=== PATIENT | male | born 1960 | race Caucasian/White ===

== ENCOUNTER 2016-04-26 11:11 | Observation (INO) | payer OTHER ==
[~2016-04-26] VITALS: Ht 175.3 cm; Wt 60.0 kg
[~2016-04-26 11:11] MED LIST: ACETAMINOPHEN-1 EAC1 PO; KEFLEX500 MG PO; MELOXICAM7.5 MG PO
[2016-04-26 12:01] LABS: MCH 35.3 PG (29.0-34.0); MCHC 35.1 G/DL (30.0-36.0); MCV 100.4 FL (86-99); MEAN PLAT.VOLUME 9.7 uM^3 (9.0-12.4); PLATELET COUNT 223 K/uL (156-360); RBC DIS.WIDTH-SD 43.2 % (39-53); RED BLOOD COUNT 4.48 M/uL (4.00-5.50); WHITE BLOOD COUNT 7.2 K/uL (4.1-10.2)
[2016-04-26 12:13] LABS: CHLORIDE 95 mEq/L (99-109); POTASSIUM 3.6 mEq/L (3.7-5.4); SODIUM 137 mEq/L (136-147)
[2016-04-26 12:15] LABS: GLUCOSE 105 mg/dL (70-99)
[2016-04-26 12:16] LABS: ANION GAP 18 MEQ/L (2-14)
[2016-04-26 12:17] LABS: TOTAL BILIRUBIN 1.6 mg/dL (0.0-1.0)
[2016-04-26 12:19] LABS: ALKALINE PHOSPHATASE 105 IU/L (3-129); GFR ESTIMATE (CALCULATED) > 59 mL/min/
[2016-04-26 12:20] LABS: UREA NITROGEN (BUN) 9 mg/dL (9-23)
[2016-04-26 12:22] LABS: LIPASE 12 U/L (1.0-51.0); TROP-I INTERPRETATION NEGATIVE; TROPONIN-I < 0.01 ng/mL (0.0-0.30)
[2016-04-26] MEDS ORDERED: TYLENOL WITH C1 EACH PO (16:11)
[2016-04-26] MEDS ORDERED: MELOXICAM7.5 MG PO (16:12)
[2016-04-26] MEDS ORDERED: PERCOCET 5/31 TABLET PO (16:12)
[2016-04-26 18:31] VITALS: BP 130/79
[2016-04-26 19:49] VITALS: BP 140/92
[2016-04-26 20:47] LABS: TROP-I INTERPRETATION NEGATIVE; TROPONIN-I < 0.01 ng/mL (0.0-0.30)
[2016-04-27 00:20] LABS: ADD MIUA? YES; BILIRUBIN SMALL; BLOOD NEGATIVE; COLOR ORANGE ((YELLOW)); GLUCOSE (STRIP) NEGATIVE; KETONES >=80; LEUKOCYTES SMALL; NITRITE NEGATIVE; PROTEIN (STRIP) 100; SPECIFIC GRAVITY 1.027 (1.000-1.030)
[2016-04-27 00:41] LABS: TROP-I INTERPRETATION NEGATIVE; TROPONIN-I < 0.01 ng/mL (0.0-0.30)
[2016-04-27 01:00] LABS: BACTERIA RARE /HPF; CASTS NONE SEEN /LPF; CRYSTALS NONE SEEN; EPITHELIAL CELLS RARE /HPF; MUCUS NONE SEEN /LPF; RED BLOOD CELLS RARE /HPF (0-5); UCUL ADDED? NO; WHITE BLOOD CELLS 0-5 /HPF (0-5)
[2016-04-27 02:03] VITALS: BP 125/83
[2016-04-27 04:41] VITALS: BP 126/88
[2016-04-27 07:01] LABS: INTER. NORMALIZED RATIO 1.1; PROTHROMBIN TIME 11.4 (9.2-11.2); PTT 28.1 (25-32)
[2016-04-27 08:17] LABS: HEMATOCRIT 40.4 % (38.0-50.0); MCHC 33.9 G/DL (30.0-36.0); MCV 103.3 FL (86-99); MEAN PLAT.VOLUME 10.6 uM^3 (9.0-12.4); PLATELET COUNT 196 K/uL (156-360); RBC DIS.WIDTH-CV 12.6 % (11.8-14.6); RBC DIS.WIDTH-SD 47.4 % (39-53); RED BLOOD COUNT 3.91 M/uL (4.00-5.50); WHITE BLOOD COUNT 6.7 K/uL (4.1-10.2)
[2016-04-27 08:30] LABS: ALKALINE PHOSPHATASE 69 IU/L (3-129); ANION GAP 9 MEQ/L (2-14); CHLORIDE 102 MEQ/L (99-109); GFR ESTIMATE (CALCULATED) > 59 mL/min/; GLUCOSE 100 mg/dL (70-99); POTASSIUM 3.6 MEQ/L (3.7-5.4); SAMPLE HEMOLYSIS CHECK 0; SAMPLE ICTERIC CHECK 0; SAMPLE LIPEMIA CHECK 0; SODIUM 137 MEQ/L (136-147); TOTAL BILIRUBIN 1.2 MG/DL (0.0-1.0); UREA NITROGEN (BUN) 10 mg/dL (9-23)
[2016-04-27 08:45] VITALS: BP 138/92
[2016-04-27 16:41] VITALS: BP 152/95
[2016-04-27 21:32] VITALS: BP 157/95
[2016-04-28 02:07] VITALS: BP 143/90
[2016-04-28 05:20] VITALS: BP 136/86
[2016-04-28 06:23] LABS: EOSINOPHIL (%) 0.9 % (0-5); EOSINOPHIL COUNT 0.1 K/uL (0-0.3); HEMATOCRIT 43.7 % (38.0-50.0); IMMATURE GRANULOCYTE (%) 0.2 % (0.0-0.7); LYMPHOCYTE COUNT 1.2 K/uL (1.0-2.8); MCH 36.4 PG (29.0-34.0); MCHC 34.3 G/DL (30.0-36.0); MCV 106.1 FL (86-99); MEAN PLAT.VOLUME 10.9 uM^3 (9.0-12.4); MONOCYTE (%) 12.7 % (3-12); MONOCYTE COUNT 0.7 K/uL (0-0.8); NEUTROPHIL (%) 63.9 % (45-76); NEUTROPHIL COUNT 3.5 K/uL (1.8-6.4); PLATELET COUNT 163 K/uL (156-360); RBC DIS.WIDTH-CV 12.4 % (11.8-14.6); RBC DIS.WIDTH-SD 47.6 % (39-53); RED BLOOD COUNT 4.12 M/uL (4.00-5.50); WHITE BLOOD COUNT 5.5 K/uL (4.1-10.2)
[2016-04-28 06:49] LABS: ANION GAP 7 MEQ/L (2-14); CHLORIDE 104 MEQ/L (99-109); GFR ESTIMATE (CALCULATED) > 59 mL/min/; GLUCOSE 87 mg/dL (70-99); POTASSIUM 3.9 MEQ/L (3.7-5.4); SAMPLE HEMOLYSIS CHECK 0; SAMPLE ICTERIC CHECK 0; SAMPLE LIPEMIA CHECK 0; SODIUM 137 MEQ/L (136-147); UREA NITROGEN (BUN) 3 mg/dL (9-23)
[2016-04-28 07:45] VITALS: BP 140/93
[2016-04-28 11:30] VITALS: BP 133/89
[2016-04-28] MEDS ORDERED: SUCRALFATE1 GM/10 ML PO (15:07)
[2016-04-28] MEDS ORDERED: PROTONIX40 MG PO (15:07)
== END 2016-04-28 16:02 | disposition home or self-care (01) ==
LOC: EME → EDBD 11:11 → EDOF 16:04 → 5WEST 16:04
PROVIDERS: Emergency Medicine; Hospitalist; Internal Medicine; Internal Medicine Gastroenterology
PROC: 0DB68ZX Excision of Stomach, Via Natural or Artificial Opening Endoscopic, Diagnostic (ICD-10-PCS; principal; 2016-04-27)
DX: R07.9 Chest pain, unspecified (principal); K26.9 Duodenal ulcer, unspecified as acute or chronic, without hemorrhage or perforation; K29.70 Gastritis, unspecified, without bleeding; K20.9 Esophagitis, unspecified; F10.288 Alcohol dependence with other alcohol-induced disorder; R11.2 Nausea with vomiting, unspecified; R74.0 Nonspecific elevation of levels of transaminase and lactic acid dehydrogenase [LDH]; E87.6 Hypokalemia; E86.0 Dehydration; B19.20 Unspecified viral hepatitis C without hepatic coma; F12.10 Cannabis abuse, uncomplicated; F17.210 Nicotine dependence, cigarettes, uncomplicated; Z82.49 Family history of ischemic heart disease and other diseases of the circulatory system
CPT/HCPCS: 71010; 74176; 76705; 80048; 80053; 81003; 82272; 83690; 84484; 85025; 85027; 85379; 85610; 85730; 88305; 88342 TC; 93005; 93306; 99202; 99281; 99285; C9113; G0378; J2060; J2250; J2270; J2405; J2765; J3411; J3475; J7030; J7042